=== PATIENT | female | born 1950 | race Two or more races ===

== ENCOUNTER 2024-11-25 15:49 | Inpatient (IN) | payer OTHER ==
[~2024-11-25] VITALS: Ht 160 cm; Wt 79.4 kg
[2024-11-25 16:18] LABS: PLATELET COUNT (AUTO) 193 K/uL (179-408); RED BLOOD CELL COUNT(AUTO) 3.92 MIL/uL (3.63-4.92); RED CELL DISTRIBUTION WIDTH 16.7 % (12.3-17.7); WHITE BLOOD COUNT (AUTO) 7.8 K/uL (3.8-11.8)
[2024-11-25 16:26] LABS: CREATININE 0.8 mg/dL (0.6-1.3); SODIUM SERUM 136 mmol/L (136-145); UREA NITROGEN, BLOOD 22 mg/dL (7-18)
[2024-11-25] MEDS ORDERED: FENTANYL CITRATE 100 MCG/2 ML AMPUL ONE (17:32)
[2024-11-25] MEDS: FENTANYL CITRATE 100 MCG/2 ML AMPUL IV ONE (17:35)
[2024-11-25] MEDS ORDERED: PIOG45TA64 PO (17:50)
[2024-11-25] MEDS ORDERED: METF-440 PO (17:50)
[2024-11-25] MEDS ORDERED: GLIP5TAB13 PO (17:50)
[2024-11-25] MEDS ORDERED: CYAN10009 PO (17:51)
[2024-11-25] MEDS ORDERED: LISI40TA13 PO (17:51)
[2024-11-25] MEDS ORDERED: ROSU20TA32 PO (17:51)
[2024-11-25 18:58] LABS: ASPARTATE AMINOTRANSFERASE 10.0 U/L (15-37); TOTAL PROTEIN, SERUM 7.8 g/dL (6.4-8.2)
[2024-11-25] MEDS: ENALAPRILAT DIHYDRATE 1.25 MG/1 ML VIAL IV ONE (19:00)
[2024-11-25 20:15] VITALS: BP 175/72; TEMP 98.2; O2SAT 97
[2024-11-25] MEDS ORDERED: ACETAMINOPHEN 650 MG SUPP.RECT RC PRN (20:30)
[2024-11-25] MEDS ORDERED: ONDANSETRON 4 MG/2 ML VIAL IV PRN (20:30)
[2024-11-25] MEDS ORDERED: DEXTROSE 50% 50 ML DISP.SYRIN IV PRN (20:30)
[2024-11-25] MEDS: FUROSEMIDE 20 MG/2 ML VIAL IV ONE (20:34)
[2024-11-25] MEDS: MORPHINE SULFATE 2 MG/1 ML DISP.SYRIN IV PRN (20:35)
[2024-11-25] MEDS: IV D5 1/2 NS 1000 ML 1,000 ML IV PRN (21:33)
[2024-11-26] VITALS (8 sets, daily range): BP systolic 121–165; BP diastolic 54–77; TEMP 97.8–98.4; O2SAT 96–99
[2024-11-26] MEDS: BLOOD SUGAR DIAGNOSTIC 1 EACH STRIP VI SCH ×2 (00:20→20:48)
[2024-11-26] MEDS: INSULIN REGULAR, HUMAN 1000 UNIT/10 ML VIAL SQ PRN ×2 (00:24→20:43)
[2024-11-26 07:07] LABS: PLATELET COUNT (AUTO) 281 K/uL (179-408); RED BLOOD CELL COUNT(AUTO) 3.89 MIL/uL (3.63-4.92); RED CELL DISTRIBUTION WIDTH 16.2 % (12.3-17.7); WHITE BLOOD COUNT (AUTO) 10.9 K/uL (3.8-11.8)
[2024-11-26 07:27] LABS: ASPARTATE AMINOTRANSFERASE 29 U/L (15-37); CREATININE 1.3 mg/dL (0.6-1.3); SODIUM SERUM 139 mmol/L (136-145); TOTAL PROTEIN, SERUM 6.5 g/dL (6.4-8.2); UREA NITROGEN, BLOOD 46 mg/dL (7-18)
[2024-11-26] MEDS: PANTOPRAZOLE SODIUM 40 MG VIAL IV SCH (08:12)
[2024-11-26] MEDS: LISINOPRIL 20 MG TABLET PO SCH (08:12)
[2024-11-26] MEDS ORDERED: VANCOMYCIN 1000 MG VIAL ONE (09:53)
[2024-11-26] MEDS ORDERED: MAGNESIUM SULFATE/D5W 100 ML ONE (10:24)
[2024-11-26] MEDS ORDERED: ROPIVACAINE HCL/PF 0.5% ( 5 MG/ML ) , 20 ML VIAL ONE (10:24)
[2024-11-26] MEDS ORDERED: TRANEXAMIC ACID 1,000 MG/10 ML VIAL ONE (10:25)
[2024-11-26] MEDS ORDERED: FAMOTIDINE. 20 MG/2 ML VIAL IV ONE (10:25)
[2024-11-26] MEDS ORDERED: KETAMINE HCL 500 MG/5 ML VIAL ONE (10:25)
[2024-11-26] MEDS ORDERED: FENTANYL CITRATE 100 MCG/2 ML AMPUL ONE (10:25)
[2024-11-26] MEDS ORDERED: ROCURONIUM BROMIDE 50 MG/5 ML VIAL ONE (10:25)
[2024-11-26] MEDS ORDERED: MIDAZOLAM HCL 2 MG/2 ML VIAL ONE (10:25)
[2024-11-26] MEDS ORDERED: PROPOFOL 200 MG/20 ML BOTTLE ONE (11:00)
[2024-11-26] MEDS ORDERED: SUGAMMADEX SODIUM 200 MG/2 ML VIAL IV ONE (12:05)
[2024-11-26] MEDS: ENALAPRILAT DIHYDRATE 1.25 MG/1 ML VIAL IV PRN (13:57)
[2024-11-26] MEDS: IV D5W-0.45% NS +20 KCL 1,000 ML IV PRN (14:53)
[2024-11-26] MEDS: NEUTRA PHOS PACKET PO ONE (16:10)
[2024-11-26] MEDS: HYDROCODONE/APAP 10-325 MG TABLET PO PRN (17:43)
[2024-11-26] MEDS: CEFAZOLIN 1 G in IV DEXTROSE 5% 50 ML IV SCH (18:04)
[2024-11-26] MEDS ORDERED: DEXTROSE 50% 50 ML DISP.SYRIN IV PRN (19:45)
[2024-11-27 06:00] VITALS: BP 149/72; TEMP 99; O2SAT 96
[2024-11-27 07:03] LABS: PLATELET COUNT (AUTO) 181 K/uL (179-408); RED BLOOD CELL COUNT(AUTO) 3.46 MIL/uL (3.63-4.92); RED CELL DISTRIBUTION WIDTH 16.7 % (12.3-17.7); WHITE BLOOD COUNT (AUTO) 10.0 K/uL (3.8-11.8)
[2024-11-27 07:16] LABS: CREATININE 0.9 mg/dL (0.6-1.3); SODIUM SERUM 137 mmol/L (136-145); UREA NITROGEN, BLOOD 13 mg/dL (7-18)
[2024-11-27 07:26] LABS: IRON, SERUM 13 ug/dL (50-175)
[2024-11-27] MEDS: MORPHINE SULFATE 2 MG/1 ML DISP.SYRIN IV PRN (10:08)
[2024-11-27 12:00] VITALS: BP 147/58; TEMP 98.8; O2SAT 96
[2024-11-27] MEDS: MAGNESIUM OXIDE 400 MG TABLET PO ONE (13:18)
[2024-11-27 15:03] VITALS: BP 162/68; TEMP 98.6; O2SAT 97
[2024-11-27 17:13] LABS: *BILIRUBIN,URIN NEGATIVE (NEGATIVE); *CLARITY,URINE CLEAR (CLEAR); *COLOR,URINE YELLOW (YELLOW); *KETONES,URINE NEGATIVE (NEGATIVE); *PROTEIN,URINE NEGATIVE (NEGATIVE); *UROBILINOGEN,URINE 0.2 E.U./dl (NORMAL); LEUKOCYTE ESTERASE ,URINE NEGATIVE (NEGATIVE); NITRITE, URINE NEGATIVE (NEGATIVE); UGLUCOSE 1+ (NEGATIVE)
[2024-11-27 17:44] LABS: *BLOOD, URINE TRACE (NEGATIVE)
[2024-11-27 18:05] LABS: SQUAMOUS EPITHELIAL CELL,UR FEW /HPF (NONE SEEN)
[2024-11-27 19:15] VITALS: BP 110/59; TEMP 100; O2SAT 94
[2024-11-27] MEDS: ACETAMINOPHEN 325 MG TABLET PO PRN (19:39)
[2024-11-28 04:00] VITALS: BP 143/75; TEMP 98.4; O2SAT 95
[2024-11-28] MEDS: PANTOPRAZOLE SODIUM 40 MG TABLET.DR PO SCH (06:28)
[2024-11-28 08:51] VITALS: BP 149/67
[2024-11-28 08:59] VITALS: TEMP 98.5
[2024-11-28 11:35] VITALS: BP 142/59; TEMP 98.5; O2SAT 95
[2024-11-28 16:13] VITALS: BP 154/69; TEMP 98.7; O2SAT 95
[2024-11-28] MEDS: MIRALAX 17 GM POWD.PACK PO PRN (16:30)
[2024-11-28] MEDS ORDERED: DEXTROSE 50% 50 ML DISP.SYRIN IV PRN (16:45)
[2024-11-28] MEDS: METFORMIN HCL 500 MG TABLET PO SCH (18:10)
[2024-11-28] MEDS: BLOOD SUGAR DIAGNOSTIC 1 EACH STRIP VI SCH (18:10)
[2024-11-28] MEDS: INSULIN REGULAR, HUMAN 1000 UNIT/10 ML VIAL SQ PRN (18:13)
[2024-11-28 19:20] VITALS: BP 124/54; TEMP 99.2; O2SAT 94
[2024-11-28] MEDS: BISACODYL 10 MG SUPP.RECT RC ONE (20:52)
[2024-11-29 04:10] VITALS: BP 109/55; TEMP 99.4; O2SAT 94
[2024-11-29 06:57] LABS: PLATELET COUNT (AUTO) 181 K/uL (179-408); RED BLOOD CELL COUNT(AUTO) 3.22 MIL/uL (3.63-4.92); RED CELL DISTRIBUTION WIDTH 17.0 % (12.3-17.7); WHITE BLOOD COUNT (AUTO) 8.1 K/uL (3.8-11.8)
[2024-11-29 07:12] LABS: ASPARTATE AMINOTRANSFERASE 24 U/L (15-37); CREATININE 0.8 mg/dL (0.6-1.3); SODIUM SERUM 138 mmol/L (136-145); TOTAL PROTEIN, SERUM 6.7 g/dL (6.4-8.2); UREA NITROGEN, BLOOD 19 mg/dL (7-18)
[2024-11-29 11:30] VITALS: BP 128/44; TEMP 98.6; O2SAT 98
[2024-11-29] MEDS: SOD FERRIC GLUC COMPLX/SUCROSE 125 MG in IV NORMAL SALINE 100 ML IV ONE (14:36)
[2024-11-29 15:40] VITALS: BP 115/55; TEMP 98.3; O2SAT 97
[2024-11-29 21:27] VITALS: BP 112/59; TEMP 98.1; O2SAT 93
[2024-11-30 06:51] VITALS: BP 135/61; TEMP 98.1; O2SAT 92
[2024-11-30 11:08] VITALS: BP 128/63; TEMP 99.2; O2SAT 95
[2024-11-30 15:34] VITALS: BP 115/58; TEMP 98.9; O2SAT 97
[2024-11-30 19:15] VITALS: BP 119/56; TEMP 98.8; O2SAT 94
[2024-12-01 04:00] VITALS: BP 142/56; TEMP 98.6; O2SAT 95
[2024-12-01 06:55] LABS: CREATININE 0.8 mg/dL (0.6-1.3); SODIUM SERUM 137 mmol/L (136-145); UREA NITROGEN, BLOOD 23 mg/dL (7-18)
[2024-12-01 06:56] LABS: PLATELET COUNT (AUTO) 232 K/uL (179-408); RED BLOOD CELL COUNT(AUTO) 3.40 MIL/uL (3.63-4.92); RED CELL DISTRIBUTION WIDTH 16.5 % (12.3-17.7); WHITE BLOOD COUNT (AUTO) 7.9 K/uL (3.8-11.8)
[2024-12-01 12:00] VITALS: BP 121/76; TEMP 97.6; O2SAT 96
[2024-12-01 15:45] VITALS: BP 155/66; TEMP 97.3; O2SAT 98
[2024-12-01 19:20] VITALS: BP 133/61; TEMP 97.8; O2SAT 95
[2024-12-01] MEDS: BISACODYL 10 MG SUPP.RECT RC PRN (21:02)
[2024-12-02 04:20] VITALS: BP 139/62; TEMP 98.1; O2SAT 96
[2024-12-02 11:11] VITALS: BP 129/100; TEMP 98.2; O2SAT 94
[2024-12-02] MEDS ORDERED: BISA10SU12 RC (12:13)
[2024-12-02] MEDS ORDERED: MULT-1045 PO (12:13)
[2024-12-02] MEDS ORDERED: POLY17PO4 PO (12:13)
[2024-12-02] MEDS ORDERED: HYDR-4209 PO (12:13)
[2024-12-02] MEDS ORDERED: ACET325T53 PO (12:13)
[2024-12-02] MEDS ORDERED: FAMO-132 PO (12:15)
[2024-12-02] MEDS ORDERED: FERR324T17 PO (12:15)
[2024-12-02] MEDS ORDERED: ASPI-1100 PO (12:35)
[2024-12-02] MEDS: ASPIRIN EC 325 MG TABLET.DR PO ONE (13:45)
== END 2024-12-02 15:50 | DRG 521 ==
LOC: ER 15:49 → EDBD 15:49 → TELE3 19:31 → MEDSURG3 11-26 08:13
PROVIDERS: ADMIT Internal Medicine; ATTEND Internal Medicine
PROC: 0SRR01A Replacement of Right Hip Joint, Femoral Surface with Metal Synthetic Substitute, Uncemented, Open Approach (ICD-10-PCS; principal; 2024-11-25)
PROC: 05HB33Z Insertion of Infusion Device into Right Basilic Vein, Percutaneous Approach (ICD-10-PCS; 2024-11-27)
DX: S72.031A Displaced midcervical fracture of right femur, initial encounter for closed fracture (principal); N17.0 Acute kidney failure with tubular necrosis; W01.0XXA Fall on same level from slipping, tripping and stumbling without subsequent striking against object, initial encounter; Y92.89 Other specified places as the place of occurrence of the external cause; E66.9 Obesity, unspecified; M15.9 Polyosteoarthritis, unspecified; E11.65 Type 2 diabetes mellitus with hyperglycemia; M89.8X9 Other specified disorders of bone, unspecified site; I11.9 Hypertensive heart disease without heart failure; Z68.31 Body mass index [BMI] 31.0-31.9, adult; Z74.09 Other reduced mobility; Z79.84 Long term (current) use of oral hypoglycemic drugs; Z79.899 Other long term (current) drug therapy; D50.9 Iron deficiency anemia, unspecified; I44.0 Atrioventricular block, first degree
CPT/HCPCS: 36415; 71045; 73501; 73502; 82378; 83550; 83735; 84100; 84443; 84484; 85025; 85730; 87086; 93307; A4606; A4663; C1776; G0378; J0690; J1100; J1308; J1815; J1938; J2250; J2270; J2405; J2470; J2795; J2916; J3010; J3373; J3475; J3490

== ENCOUNTER 2025-01-31 18:47 | Inpatient (IN) | payer OTHER ==
[~2025-01-31] VITALS: Ht 157.5 cm; Wt 77.1 kg
[~2025-01-31 18:47] MED LIST: ACET325T53 PO; ASPI-1100 PO; BISA10SU12 RC; CYAN10009 PO; FAMO-132 PO; FERR324T17 PO; GLIP5TAB13 PO; HYDR-4209 PO; LISI40TA13 PO; METF-440 PO; MULT-1045 PO; PIOG45TA64 PO; POLY17PO4 PO; ROSU20TA32 PO
[2025-01-31 20:04] LABS: PLATELET COUNT (AUTO) 304 K/uL (179-408); RED BLOOD CELL COUNT(AUTO) 3.49 MIL/uL (3.63-4.92); RED CELL DISTRIBUTION WIDTH 17.1 % (12.3-17.7); WHITE BLOOD COUNT (AUTO) 8.3 K/uL (3.8-11.8)
[2025-01-31 20:14] LABS: CREATININE 0.9 mg/dL (0.6-1.3); SODIUM SERUM 138 mmol/L (136-145); UREA NITROGEN, BLOOD 13 mg/dL (7-18)
[2025-01-31 20:21] LABS: ASPARTATE AMINOTRANSFERASE 5 U/L (15-37); TOTAL PROTEIN, SERUM 7.3 g/dL (6.4-8.2)
[2025-01-31] MEDS ORDERED: IV NORMAL SALINE 250 ML IV ONE (21:12)
[2025-01-31] MEDS ORDERED: IOHEXOL 350 100 ML INFUS..BTL ONE (21:12)
[2025-01-31] MEDS ORDERED: SWABABLE VALVE TRANSFER SET EA MC ONE (21:12)
[2025-01-31] MEDS: IV NORMAL SALINE 1000 ML BAG IV ONE (21:16)
[2025-01-31] MEDS ORDERED: MAGNESIUM HYDROXIDE 30 ML LIQUID UDC PO PRN (21:30)
[2025-01-31] MEDS ORDERED: ONDANSETRON 4 MG/2 ML VIAL IV PRN (21:30)
[2025-01-31] MEDS ORDERED: ACETAMINOPHEN 325 MG TABLET PO PRN (21:30)
[2025-01-31] MEDS ORDERED: DEXTROSE 50% 50 ML DISP.SYRIN IV PRN (21:30)
[2025-01-31] MEDS: IV NS 1000 ML 1,000 ML IV SCH (22:39)
[2025-01-31 22:40] VITALS: BP 146/65; TEMP 98.5; O2SAT 98
[2025-01-31] MEDS: ENOXAPARIN SODIUM 40 MG/0.4 ML DISP.SYRIN SQ SCH (22:49)
[2025-02-01] VITALS (8 sets, daily range): BP systolic 133–150; BP diastolic 54–67; TEMP 97.8–99.4; O2SAT 96–98
[2025-02-01] MEDS: BLOOD SUGAR DIAGNOSTIC 1 EACH STRIP VI SCH (06:47)
[2025-02-01 06:51] LABS: PLATELET COUNT (AUTO) 243 K/uL (179-408); RED BLOOD CELL COUNT(AUTO) 3.23 MIL/uL (3.63-4.92); RED CELL DISTRIBUTION WIDTH 16.9 % (12.3-17.7); WHITE BLOOD COUNT (AUTO) 6.1 K/uL (3.8-11.8)
[2025-02-01 07:06] LABS: CREATININE 0.7 mg/dL (0.6-1.3); SODIUM SERUM 139 mmol/L (136-145); UREA NITROGEN, BLOOD 9 mg/dL (7-18)
[2025-02-01] MEDS: MULTIVITAMINS,THERAPEUTIC TABLET PO SCH (08:38)
[2025-02-01] MEDS ORDERED: PIOGLITAZONE HCL PO SCH (09:00)
[2025-02-01] MEDS: INSULIN REGULAR, HUMAN 1000 UNIT/10 ML VIAL SQ PRN (11:59)
[2025-02-01] MEDS: ATORVASTATIN 40 MG TABLET PO SCH (20:53)
[2025-02-02] VITALS: BP 132/66; TEMP 98.6; O2SAT 99
[2025-02-02 03:56] VITALS: BP 125/58; TEMP 97.8; O2SAT 92
[2025-02-02 07:32] VITALS: BP 132/65; TEMP 98.1; O2SAT 97
[2025-02-02] MEDS: PIOGLITAZONE HCL 15 MG TABLET PO SCH (10:45)
[2025-02-02 10:46] VITALS: BP 139/66
[2025-02-02] MEDS: LISINOPRIL 20 MG TABLET PO SCH (10:46)
== END 2025-02-02 10:50 | disposition home or self-care (01) | DRG 74 ==
LOC: ER 18:50 → TELE3 21:43 → MEDSURG3 02-02 10:22
DX: G90.89 Other disorders of autonomic nervous system (principal); E44.1 Mild protein-calorie malnutrition; E66.9 Obesity, unspecified; E86.0 Dehydration; E88.09 Other disorders of plasma-protein metabolism, not elsewhere classified; D64.9 Anemia, unspecified; I44.0 Atrioventricular block, first degree; I11.9 Hypertensive heart disease without heart failure; R79.1 Abnormal coagulation profile; Z96.641 Presence of right artificial hip joint; E78.5 Hyperlipidemia, unspecified; R19.7 Diarrhea, unspecified; Z68.31 Body mass index [BMI] 31.0-31.9, adult; Z79.84 Long term (current) use of oral hypoglycemic drugs; Z79.899 Other long term (current) drug therapy
CPT/HCPCS: 36415; 71045; 71275; 83605; 83735; 84100; 84443; 84484; 85025; 85730; 87040; A4606; A4663; G0378; J1650; J7040; Q9967